=== PATIENT | male | born 1980 | race Two or more races ===

== ENCOUNTER 2020-03-27 14:41 | Outpatient (CLI) | payer OTHER | END 2020-03-27 16:00 | disposition home or self-care (01) | LOC: OFIC 805 14:41 | PROVIDERS: ATTEND Otolaryngology Otology & Neurotology | DX: J34.2 Deviated nasal septum (principal); J31.0 Chronic rhinitis; H61.21 Impacted cerumen, right ear; H60.392 Other infective otitis externa, left ear ==